=== PATIENT | female | born 1985 | race African-American/Black ===

== ENCOUNTER 2017-08-29 08:15 | Emergency (ER) | payer MEDICAID ==
[~2017-08-29] VITALS: Ht 154.9 cm; Wt 53.1 kg
--- NOTE | 2017-08-29 09:04 | NUR ---
DR BRUCE AT THE BEDSIDE FOR EVAL AND EXAM.
[2017-08-29 09:20] LABS: BASOPHILS # (AUTO) 0.3 K/uL (0.0-8.0); BASOPHILS % (AUTO) 3.1 % (0.0-2.0); EOSINOPHILS % (AUTO) 0.4 % (0.0-7.0); HEMATOCRIT 32.4 % (37-47); HEMOGLOBIN 10.9 G/DL (12.0-16.0); LYMPHOCYTES # (AUTO) 0.9 K/UL (0.8-4.8); LYMPHOCYTES % (AUTO) 9.6 % (20.5-51.5); MEAN CORPUSCULAR HEMOGLOBIN 29.8 UUG (27.0-31.0); MEAN CORPUSCULAR HGB CONC 34 g/dL (32.0-37.0); MEAN CORPUSCULAR VOLUME 88.3 FL (81.0-99.0); MONOCYTES # (AUTO) 0.4 K/UL (0.1-1.30); MONOCYTES % (AUTO) 4.7 % (0.0-11.0); NEUTROPHILS # (AUTO) 7.9 K/UL (1.8-8.9); NEUTROPHILS % (AUTO) 82.2 % (38.5-71.5); PLATELET COUNT (AUTO) 261 K/UL (150-450); RED BLOOD CELL COUNT(AUTO) 3.67 MIL/UL (4.2-5.4); WHITE BLOOD COUNT (AUTO) 9.5 K/UL (4.0-11.2)
[2017-08-29 09:32] LABS: CREATININE 0.9 mg/dL (0.6-1.3); POTASSIUM 3.9 mmol/L (3.5-5.1)
[2017-08-29 09:38] LABS: BILIRUBIN,DIRECT 0.1 mg/dL (0.0-0.2); BILIRUBIN,TOTAL 0.3 mg/dL (0.2-1.0)
[2017-08-29 10:18] VITALS: BP 137/55
--- NOTE | 2017-08-29 10:19 | NUR ---
Patient discharged to home in stable conditon. Written and verbal after care instructions given. Patient verbalizes understanding of instructions.
== END 2017-08-29 10:19 | disposition home or self-care (01) ==
LOC: ER 08:15
DX: J01.10 Acute frontal sinusitis, unspecified (principal); B35.0 Tinea barbae and tinea capitis
CPT/HCPCS: 36415; 70030-TC; 83690; 84703; 85025; A4663

== ENCOUNTER 2019-02-15 11:22 | Emergency (ER) | payer MEDICAID ==
[~2019-02-15] VITALS: Ht 152.4 cm; Wt 54.4 kg
--- NOTE | 2019-02-15 11:55 | NUR ---
SHAHLA BRUNNER AT BEDSIDE FOR MSE.
--- NOTE | 2019-02-15 12:19 | NUR ---
PT AWAITING AMBROSIO CADENA, FOR SAFE HOMELESS D/C.
--- NOTE | 2019-02-15 12:30 | NUR ---
PT PROVIDED W/ FOOD.
--- NOTE | 2019-02-15 13:01 | NUR ---
AMBROSIO CADENA, AT BEDSIDE FOR PT CONSULT.
--- NOTE | 2019-02-15 13:08 | NUR ---
Patient given written and verbal discharge instructions. Patient verbalizes understanding of instructions. Patient is ambulatory with steady gait. Refuses offer of skilled nursing placement. Patient given list of available shelters in surrounding area. ALL BELONGINGS W/ PT. PT SELF-AMBULATED W/O DIFFICULTY.
--- NOTE | 2019-02-15 15:05 | NUR ---
1:00pm: AMY arrived to the ED to meet with patient, who was sitting on the bed in her assigned ED room. Patient is a 33 year old female; receptive to meet with this SW. Patient states she is homeless and was interested in information regarding homeless shelters. Patient states she moved from [place], [place] to [place] about 2 years ago. She moved to [place] with her father, and was initially living with him, but reports that the living arrangements did not work out and that she had to move out. Patient stated that she has been homeless on and off for over a year now. Patient is oriented x 4, wearing clean and warm clothes. Patient stated that the nurse provided her with food earlier. SW asked if there were any family/friends that AMY can assist patient with contacting, and patient stated there were none. SW reviewed the list of [facility]eless shelters with the patient. SW offered transportation from the hospital to the pick-up location for the senior care, but patient stated that she wanted to go to the pharmacy to fill her prescriptions, and would then take the bus to the pick-up location at [address] [place] [address]. Patient stated that the pharmacy was on the corner of [facility] and that she would just walk there. Patient stated that she was familiar with the bus routes, and therefore declined the hospital transportation offered by AMY. AMY provided patient with a copy of the list of [facility] homeless shelters. SW also provided patient with a copy of the [facility] homeless resource directory, which includes dates, times, and locations that homeless individuals can go to get hot meals, sack lunches, food pantries, and showers. AMY also provided a list of medical clinics, mental health clinics, and substance abuse programs and treatment clinics throughout the [facility]. SW also provided patient with a list of pharmacies throughout the [facility]. Patient signed the homeless waiver program. Patient thanked AMY for the information and resources. No further interventions needed at this time. OUMOU Billings informed of above. Homeless waiver, along with the list of homeless resources that were provided, were filed in patient's ED chart.
== END 2019-02-15 13:10 | disposition home or self-care (01) ==
LOC: ER 11:22
DX: L30.9 Dermatitis, unspecified (principal); M54.6 Pain in thoracic spine
CPT/HCPCS: A4663

== ENCOUNTER 2020-02-23 10:40 | Emergency (ER) | payer MEDICAID ==
[~2020-02-23] VITALS: Ht 154.9 cm; Wt 56.7 kg
--- NOTE | 2020-02-23 10:55 | NUR ---
@bedside, MSE in progress
--- NOTE | 2020-02-23 11:31 | NUR ---
Patient discharged to home in stable condition & brisk steady gait. Written and verbal after care instructions given to patient. Patient verbalized understanding and compliance of instructions.
== END 2020-02-23 11:34 | disposition home or self-care (01) ==
LOC: ER 10:40
DX: J06.9 Acute upper respiratory infection, unspecified (principal); Z60.2 Problems related to living alone
CPT/HCPCS: 36415; 86403; 87070; 87400; A4663

== ENCOUNTER 2021-04-11 09:18 | Emergency (ER) | payer MEDICAID ==
[~2021-04-11] VITALS: Ht 152.4 cm; Wt 59.0 kg
[2021-04-11 09:54] LABS: BASOPHILS # (AUTO) 0.1 K/uL (0.0-8.0); BASOPHILS % (AUTO) 1.2 % (0.0-2.0); EOSINOPHILS # (AUTO) 0.1 K/uL (0.0-0.7); EOSINOPHILS % (AUTO) 1.7 % (0.0-7.0); HEMATOCRIT 39.3 % (31.2-41.9); HEMOGLOBIN 13.2 g/dL (10.9-14.3); LYMPHOCYTES # (AUTO) 1.2 K/uL (20.0-40.0); LYMPHOCYTES % (AUTO) 19.8 % (20.5-51.5); MEAN CORPUSCULAR HEMOGLOBIN 31.3 uug (24.7-32.8); MEAN CORPUSCULAR HGB CONC 34 g/dL (32.3-35.6); MEAN CORPUSCULAR VOLUME 93.4 fL (75.5-95.3); MONOCYTES # (AUTO) 0.4 K/uL (2.0-10.0); MONOCYTES % (AUTO) 7.2 % (0.0-11.0); NEUTROPHILS # (AUTO) 4.1 K/uL (1.8-8.9); NEUTROPHILS % (AUTO) 70.1 % (38.5-71.5); PLATELET COUNT (AUTO) 298 K/uL (179-408); WHITE BLOOD COUNT (AUTO) 5.9 K/uL (3.8-11.8)
[2021-04-11 10:05] LABS: CREATININE 0.8 mg/dL (0.6-1.3); POTASSIUM 4.1 mmol/L (3.5-5.1)
[2021-04-11 10:33] LABS: IRON, SERUM 88 ug/dL (50-175)
--- NOTE | 2021-04-11 10:36 | NUR ---
Patient was given written and verbal discharge instructions. Patient verbalized understanding & compliance of instructions. Patient was ambulatory with brisk steady gait. Patient refused offer of long term placement. Patient was also given a list of available shelters in surrounding area.
[2021-04-13 07:46] VITALS: BP 135/83
== END 2021-04-11 10:36 | disposition home or self-care (01) ==
LOC: ER 09:18
DX: D64.9 Anemia, unspecified (principal); M06.9 Rheumatoid arthritis, unspecified
CPT/HCPCS: 36415; 70030-TC; 83550; 85025; A4663

== ENCOUNTER 2021-06-22 09:08 | Emergency (ER) | payer MEDICAID ==
[~2021-06-22] VITALS: Ht 152.4 cm; Wt 59.0 kg
[2021-06-22] MEDS ORDERED: FLUORESCEIN SODIUM 1 MG STRIP ONE (09:41)
[2021-06-22] MEDS ORDERED: TETRACAINE HCL 0.5% OPHT DROP 2 ML BOTTLE ONE (09:41)
[2021-06-22] MEDS ORDERED: TETRACAINE HCL 0.5% OPHT DROP 2 ML BOTTLE OP ONE (09:45)
[2021-06-22] MEDS ORDERED: DEXAMETHASONE SOD PHOSPHATE 4 MG INJ IM ONE (09:45)
[2021-06-22] MEDS ORDERED: FLUORESCEIN SODIUM 1 MG STRIP OP ONE (09:45)
--- NOTE | 2021-06-22 09:51 | NUR ---
MD@bedside, medical screening exam in progress with slit lamp.
--- NOTE | 2021-06-22 09:55 | NUR ---
pending discharge papers from MD@this time
[2021-06-22] MEDS ORDERED: OLOP2.5D12 RIGHTEYE (10:03)
[2021-06-22] MEDS ORDERED: CEPH250C PO (10:03)
[2021-06-22] MEDS ORDERED: DEXAMETHASONE SOD PHOSPHATE 10 MG INJ ONE (10:03)
--- NOTE | 2021-06-22 10:13 | NUR ---
Patient was discharge to home in stable condition with steady gait. All belongings were handed to patient before leaving. Verbal and written discharge instructions were given to patient. Patient verbalized understanding and compliance and will follow-up with primary doctor and the recommended specialist (opthalmologist) as needed. Stressed follow-up and to return to ER for worsening s/sx were emphasized.
== END 2021-06-22 10:14 | disposition home or self-care (01) ==
LOC: ER 09:08
DX: H01.001 Unspecified blepharitis right upper eyelid (principal); H10.11 Acute atopic conjunctivitis, right eye; M06.9 Rheumatoid arthritis, unspecified
CPT/HCPCS: 96372; 99283; J1100; A4663

== ENCOUNTER 2021-10-29 08:21 | Emergency (ER) | payer MEDICAID ==
[~2021-10-29] VITALS: Ht 157.5 cm; Wt 59.0 kg
[~2021-10-29 08:21] MED LIST: CEPH250C PO; OLOP2.5D12 RIGHTEYE
[2021-10-29 09:02] LABS: HEMATOCRIT 39.1 % (31.2-41.9); MEAN CORPUSCULAR HEMOGLOBIN 31.2 uug (24.7-32.8); MEAN CORPUSCULAR VOLUME 92.3 fL (75.5-95.3); PLATELET COUNT (AUTO) 275 K/uL (179-408)
[2021-10-29 09:12] LABS: BILIRUBIN,TOTAL 0.3 mg/dL (0.2-1.0); CREATININE 1.1 mg/dL (0.6-1.3); POTASSIUM 3.5 mmol/L (3.5-5.1)
[2021-10-29 09:19] LABS: *BILIRUBIN,URIN NEGATIVE (NEGATIVE); *COLOR,URINE YELLOW (YELLOW); *KETONES,URINE NEGATIVE (NEGATIVE); *UROBILINOGEN,URINE 0.2 E.U./dl (NORMAL); LEUKOCYTE ESTERASE ,URINE NEGATIVE (NEGATIVE); NITRITE, URINE NEGATIVE (NEGATIVE); UGLUCOSE NEGATIVE (NEGATIVE)
[2021-10-29 09:21] LABS: *BLOOD, URINE TRACE (NEGATIVE)
--- NOTE | 2021-10-29 09:53 | NUR ---
Patient discharged to home in stable condition. Written and verbal after care instructions given. Patient verbalizes understanding of instructions. Stressed follow up or return to ER for worsening s/s. Patient given written and verbal discharge instructions. Patient verbalizes understanding of instructions. Patient is ambulatory with steady gait. Refuses offer of half-way placement. Patient given list of available shelters in surrounding area.
[2021-10-29 13:49] LABS: *CLARITY,URINE SLIGHTLY HAZY (CLEAR)
[2021-10-29 13:50] LABS: BACTERIA,URINE FEW /HPF (NONE SEEN); SQUAMOUS EPITHELIAL CELL,UR FEW /HPF (NONE SEEN); WBC,URINE 0-3 /HPF (0-3)
== END 2021-10-29 09:58 | disposition home or self-care (01) ==
LOC: ER 08:21
DX: J06.9 Acute upper respiratory infection, unspecified (principal); Z20.822 Contact with and (suspected) exposure to COVID-19; Z59.02 Unsheltered homelessness; M06.9 Rheumatoid arthritis, unspecified
CPT/HCPCS: 36415; 71045; 85025; A4663

== ENCOUNTER 2022-09-17 09:46 | Inpatient (IN) | payer MEDICAID ==
[~2022-09-17] VITALS: Ht 154.9 cm; Wt 54.4 kg
--- NOTE | 2022-09-17 09:59 | NUR ---
PT LAYING IN BED IN NAD; CAME IN D/T SMALL LACERATION ON HER CHIN.
[2022-09-17] MEDS ORDERED: LIDOCAINE 5% PATCH TD ONE ×2 (10:45→11:41)
[2022-09-17] MEDS ORDERED: KETOROLAC TROMETHAMINE 15 MG INJ IM ONE (10:45)
[2022-09-17] MEDS ORDERED: METHOCARBAMOL 500 MG TABLET PO ONE (10:45)
[2022-09-17 10:52] LABS: HEMATOCRIT 32.7 % (31.2-41.9); MEAN CORPUSCULAR HEMOGLOBIN 30.8 uug (24.7-32.8); MEAN CORPUSCULAR VOLUME 90.6 fL (75.5-95.3); PLATELET COUNT (AUTO) 238 K/uL (179-408)
[2022-09-17] MEDS ORDERED: FLUMAZENIL 0.5 MG/5 ML VIAL ONE (11:16)
[2022-09-17 11:33] LABS: *BILIRUBIN,URIN NEGATIVE (NEGATIVE); *BLOOD, URINE NEGATIVE (NEGATIVE); *CLARITY,URINE CLEAR (CLEAR); *COLOR,URINE YELLOW (YELLOW); *KETONES,URINE NEGATIVE (NEGATIVE); *UROBILINOGEN,URINE 0.2 E.U./dl (NORMAL); LEUKOCYTE ESTERASE ,URINE NEGATIVE (NEGATIVE); NITRITE, URINE NEGATIVE (NEGATIVE); UGLUCOSE NEGATIVE (NEGATIVE)
[2022-09-17 11:36] LABS: *URINE HCG, QUAL NEGATIVE (NEGATIVE)
[2022-09-17] MEDS ORDERED: KETOROLAC TROMETHAMINE 30 MG INJ ONE (11:41)
[2022-09-17] MEDS ORDERED: METHOCARBAMOL 500 MG TABLET ONE (11:41)
[2022-09-17] MEDS ORDERED: TDAP DIPH,PERTUSS,TET VAC/PF 0.5 ML DISP.SYRIN IM ONE ×2 (12:15→12:35)
[2022-09-17] MEDS ORDERED: LIDOCAINE 1%-EPI 1:100,000 20 ML VIAL IJ ONE (12:15)
[2022-09-17] MEDS ORDERED: LIDOCAINE 1%-EPI 1:100,000 20 ML VIAL ONE (12:35)
--- NOTE | 2022-09-17 12:59 | NUR ---
"Plan to admit" per Dr Prajapati. ER registration staff Jamir notified.
--- NOTE | 2022-09-17 13:44 | NUR ---
TEXT DR. AGUIRRE FOR MRI APPROVAL.
[2022-09-17 15:35] LABS: *AMPHETAMINE, URINE NEGATIVE (NEGATIVE); *CANNABINOID, URINE POSITIVE (NEGATIVE); *COCCAINE, URINE NEGATIVE (NEGATIVE); *OPIATE, URINE NEGATIVE (NEGATIVE); *PHENCYCLIDINE SCREEN,URINE NEGATIVE (NEGATIVE)
[2022-09-17] MEDS ORDERED: ONDANSETRON 4 MG/2 ML VIAL IV PRN (16:15)
[2022-09-17] MEDS ORDERED: REMEDY ESSENTIAL ZINC PASTE 113 GM TP PRN (16:15)
[2022-09-17] MEDS ORDERED: MAGNESIUM HYDROXIDE 30 ML LIQUID UDC PO PRN (16:15)
[2022-09-17] MEDS ORDERED: IBUPROFEN 800 MG TABLET PO PRN (16:15)
[2022-09-17] MEDS ORDERED: CYCLOBENZAPRINE HCL 10 MG TABLET PO PRN (16:15)
[2022-09-17] MEDS ORDERED: ACETAMINOPHEN 325 MG TABLET PO PRN (16:15)
--- NOTE | 2022-09-17 17:15 | NUR ---
BLS AMB AT BEDSIDE TO TAKE PT TO MRI.
--- NOTE | 2022-09-17 19:00 | NUR ---
PT BACK FROM MRI; IN NAD. SBAR TO KOMAL COELLO
[2022-09-17] MEDS ORDERED: ACETAMINOPHEN 325 MG TABLET ONE (21:55)
--- NOTE | 2022-09-17 23:00 | NUR ---
Patient tolerated diiner with no n/v noted.
--- NOTE | 2022-09-18 00:05 | NUR ---
Patient sleeping on gurny with no distress noted.
--- NOTE | 2022-09-18 03:40 | NUR ---
Transfered to 3rd floor via wheelchair with no distress noted.
[2022-09-18 03:45] VITALS: BP 139/91
[2022-09-18 07:04] LABS: HEMATOCRIT 34.8 % (31.2-41.9); MEAN CORPUSCULAR HEMOGLOBIN 30.9 uug (24.7-32.8); MEAN CORPUSCULAR VOLUME 91.1 fL (75.5-95.3); PLATELET COUNT (AUTO) 250 K/uL (179-408)
[2022-09-18 07:14] LABS: MAGNESIUM 1.8 mg/dL (1.8-2.4); PHOSPHOROUS 3.9 mg/dL (2.5-4.9); POTASSIUM 3.8 mmol/L (3.5-5.1)
--- NOTE | 2022-09-18 07:43 | NUR ---
0720-Rec'd patient in bed, no acute respiratory distress, able to wake up on gently touch, verbally communicative, denies pain or discomfort. Call light at reach. 0745-Breakfast tray delivered and set up, patient awake and able to feed herself; swallows with no difficulties, supervision and assist provided.
[2022-09-18] MEDS ORDERED: ASPIRIN 81 MG TAB.CHEW PO SCH (09:00)
[2022-09-18] MEDS ORDERED: ASPI81TA31 PO (09:23)
[2022-09-18] MEDS ORDERED: SIMV-46 PO (09:23)
[2022-09-18] MEDS ORDERED: IBUP-1957 PO (09:23)
[2022-09-18] MEDS ORDERED: CYCL10TA9 PO (09:23)
--- NOTE | 2022-09-18 10:33 | NUR ---
Patient was seen and examined by PLATING STRIPPER Shemar Mejias and with orders to be discharge today. Patient is alert and oriented x4, able to understand discharge/exit care instructions as returns verbal demonstration. All discharge paperwork/med list/instructions/resource written instructions/pamphlets provided. Patient states she is homeless and does not have any family in [place]., Homeless referral and resources pamphlets provided, patient signed homeless waiver from and states she already applied for section 8 benefits and housing. Patient left in good stable conditions. No c/o pain, no respiratory distress noted. VSS and logged under discharge paper work.
== END 2022-09-18 10:35 | disposition home or self-care (01) | DRG 47 ==
LOC: ER 09:46 → TELE3 16:10
PROVIDERS: ADMIT Nurse Practitioner Acute Care; ATTEND Nurse Practitioner Acute Care
PROC: 0HQ1XZZ Repair Face Skin, External Approach (ICD-10-PCS; principal; 2022-09-17)
DX: G45.9 Transient cerebral ischemic attack, unspecified (principal); F12.10 Cannabis abuse, uncomplicated; S01.81XA Laceration without foreign body of other part of head, initial encounter; W01.0XXA Fall on same level from slipping, tripping and stumbling without subsequent striking against object, initial encounter; Z59.00 Homelessness unspecified; R20.2 Paresthesia of skin; Z20.822 Contact with and (suspected) exposure to COVID-19; F17.200 Nicotine dependence, unspecified, uncomplicated; X58.XXXA Exposure to other specified factors, initial encounter; Y93.9 Activity, unspecified; Y92.89 Other specified places as the place of occurrence of the external cause; R53.1 Weakness
CPT/HCPCS: 36415; 70450; 70551; 71046; 72125; 72141; 83735; 84100; 84703; 85025; 90715; A4663; G0378; J1885; J3490

== ENCOUNTER 2022-09-24 08:26 | Emergency (ER) | payer MEDICAID ==
[~2022-09-24] VITALS: Ht 157.5 cm; Wt 54.4 kg
[~2022-09-24 08:26] MED LIST changes: +ASPI81TA31 PO; -CEPH250C PO; +CYCL10TA9 PO; +IBUP-1957 PO; -OLOP2.5D12 RIGHTEYE; +SIMV-46 PO
--- NOTE | 2022-09-24 08:51 | NUR ---
at bedside for evaluation.
--- NOTE | 2022-09-24 08:55 | NUR ---
at bedside for suture removal.
[2022-09-24 09:06] VITALS: BP 128/90
--- NOTE | 2022-09-24 09:07 | NUR ---
Patient discharged to home in stable condition. Written and verbal after care instructions given. Patient verbalizes understanding of instructions. Stressed follow up or return to ER for worsening s/s.
== END 2022-09-24 09:07 | disposition home or self-care (01) ==
LOC: ER 08:26
DX: S01.81XD Laceration without foreign body of other part of head, subsequent encounter (principal); W01.0XXD Fall on same level from slipping, tripping and stumbling without subsequent striking against object, subsequent encounter
CPT/HCPCS: A4663